=== PATIENT | female | born 1940 | race Caucasian/White ===

== ENCOUNTER 2016-07-01 08:37 | Inpatient (IN) | payer OTHER ==
[~2016-07-01] VITALS: Ht 167.6 cm; Wt 76.9 kg
[~2016-07-01 08:37] MED LIST: ALENDRONATE SOD70 MG PO; ASPIRIN81 M2 PO; CENTRAVITES 501 EACH PO; COPAXONE20 MG/KIT; COPAXONE20 MG/KIT SC; COPAXONE40 MG/1 ML SC; COUMADIN5 MG PO; COUMADIN7.5 MG PO; Coumadin Protocol PO; DELZICOL400 M1 PO; DUONEB 2.5-0.5 M3 ML IH; Dextrose 10% in Wate IV; Dextrose 50% in Wate IV; DuoNeb IH; ENABLEX7.5 MG PO; ENSURE LIQUID237 M1 PO; FORTEO20 MICROGR SC; FUROSEMIDE40 MG PO; GENERLAC10 GM/15 M PO; GLUCAGEN1 MG IM/SC; LEVAQUIN500 MG PO; Lovenox SC; METHENAMINE HIPP1 G1 PO; METHENAMINE HIPP1 GM PO; MITRAZOL POWDER30 GM TP; MULTIVITAMIN1 EAC2 PO; Maalox, Mylanta PO; Milk Of Magnesia,MOM PO; OCUVITE TABLET1 EACH PO; OMEPRAZOLE20 MG PO; PREVACID SOLUTA30 MG GT; PROVENTIL,2.5 MG/0.5 IH; Protonix PO; Reglan IV; SALINE FLUSH 5 M5 ML IV; Senokot S,Pericolace PO; TAMIFLU75 MG PO; TRAMADOL HCL50 MG GT; TRAMADOL HCL50 MG PO; TYLENOL650 MG/20. PO; TYLOX1 CAPSULE PO; Theragran PO; VENTOLIN HFA18 GM IH; VITAMIN C1000 MG PO; WARFARIN; WARFARIN SODIUM4 MG PO; ZANAFLEX2 M1 PO; [UNRECOGNIZED DRUG - OTHER] PO; fentaNYL Citrate IV
[2016-07-01 09:47] VITALS: BP 131/61
[2016-07-01 12:23] VITALS: BP 137/63
[2016-07-01 15:22] VITALS: BP 126/61
[2016-07-01 19:58] VITALS: BP 131/74
[2016-07-01 23:28] VITALS: BP 145/75
[2016-07-02 03:18] VITALS: BP 125/67
[2016-07-02 07:00] VITALS: BP 134/56
[2016-07-02 07:20] LABS: BASOPHIL COUNT 0.1 K/uL (0-0.1); EOSINOPHIL (%) 2.4 % (0-5); EOSINOPHIL COUNT 0.4 K/uL (0-0.3); HEMATOCRIT 32.8 % (36.0-46.0); IMMATURE GRANULOCYTE (%) 0.5 % (0.0-0.7); IMMATURE GRANULOCYTE COUNT 0.1 K/uL; MCH 27.5 PG (29.0-34.0); MCHC 32.9 G/DL (30.0-36.0); MCV 83.5 FL (83-99); MEAN PLAT.VOLUME 9.2 uM^3 (9.5-12.4); MONOCYTE (%) 6.3 % (3-12); MONOCYTE COUNT 1.1 K/uL (0-0.8); NEUTROPHIL (%) 73.7 % (45-76); PLATELET COUNT 464 K/uL (156-360); RBC DIS.WIDTH-SD 45.9 % (39-53); RED BLOOD COUNT 3.93 M/uL (3.80-5.20); WHITE BLOOD COUNT 17.7 K/uL (4.1-10.2)
[2016-07-02 11:30] VITALS: BP 129/65
[2016-07-02 16:07] VITALS: BP 133/76
[2016-07-02 23:10] VITALS: BP 100/59
[2016-07-03 07:10] VITALS: BP 116/59
[2016-07-03 08:41] LABS: ANION GAP 8 MEQ/L (2-14); CHLORIDE 104 MEQ/L (99-109); GFR ESTIMATE (CALCULATED) > 59 mL/min/; MAGNESIUM 1.7 mg/dl (1.3-2.7); POTASSIUM 3.6 MEQ/L (3.7-5.4); SAMPLE HEMOLYSIS CHECK 0; SAMPLE ICTERIC CHECK 0; SAMPLE LIPEMIA CHECK 0; SODIUM 135 MEQ/L (136-147); UREA NITROGEN (BUN) 9 mg/dL (9-23)
[2016-07-03 08:42] LABS: GLUCOSE 80 mg/dL (70-99)
[2016-07-03 09:00] LABS: HEMATOCRIT 32.8 % (36.0-46.0); MCH 27.2 PG (29.0-34.0); MCHC 32.6 G/DL (30.0-36.0); MCV 83.2 FL (83-99); PLATELET COUNT 471 K/uL (156-360); RBC DIS.WIDTH-CV 14.8 % (11.8-14.6); RED BLOOD COUNT 3.94 M/uL (3.80-5.20); WHITE BLOOD COUNT 13.5 K/uL (4.1-10.2)
[2016-07-03 09:03] LABS: BASOPHIL COUNT 0.1 K/uL (0-0.1); EOSINOPHIL (%) 6.3 % (0-5); EOSINOPHIL COUNT 0.9 K/uL (0-0.3); IMMATURE GRANULOCYTE (%) 0.7 % (0.0-0.7); LYMPHOCYTE COUNT 2.9 K/uL (1.0-2.8); MONOCYTE (%) 7.6 % (3-12); NEUTROPHIL (%) 63.2 % (45-76); NEUTROPHIL COUNT 8.5 K/uL (1.8-6.4)
[2016-07-03 15:20] VITALS: BP 141/79
[2016-07-03 19:48] VITALS: BP 120/67
[2016-07-04] VITALS (8 sets, daily range): BP systolic 80–152; BP diastolic 40–67
[2016-07-04 07:33] LABS: ANION GAP 7 MEQ/L (2-14); CHLORIDE 104 MEQ/L (99-109); GFR ESTIMATE (CALCULATED) > 59 mL/min/; GLUCOSE 90 mg/dL (70-99); MAGNESIUM 1.8 mg/dl (1.3-2.7); POTASSIUM 3.9 MEQ/L (3.7-5.4); SAMPLE HEMOLYSIS CHECK 0; SAMPLE ICTERIC CHECK 0; SAMPLE LIPEMIA CHECK 0; SODIUM 138 MEQ/L (136-147); UREA NITROGEN (BUN) 7 mg/dL (9-23)
[2016-07-04 07:37] LABS: BASOPHIL COUNT 0.1 K/uL (0-0.1); EOSINOPHIL (%) 5.3 % (0-5); EOSINOPHIL COUNT 0.5 K/uL (0-0.3); HEMATOCRIT 36.2 % (36.0-46.0); IMMATURE GRANULOCYTE (%) 0.9 % (0.0-0.7); IMMATURE GRANULOCYTE COUNT 0.1 K/uL; LYMPHOCYTE COUNT 1.6 K/uL (1.0-2.8); MCH 26.2 PG (29.0-34.0); MCHC 31.2 G/DL (30.0-36.0); MCV 83.8 FL (83-99); MEAN PLAT.VOLUME 9.1 uM^3 (9.5-12.4); MONOCYTE COUNT 0.6 K/uL (0-0.8); NEUTROPHIL (%) 69.7 % (45-76); NEUTROPHIL COUNT 6.4 K/uL (1.8-6.4); PLATELET COUNT 473 K/uL (156-360); RBC DIS.WIDTH-CV 14.9 % (11.8-14.6); RBC DIS.WIDTH-SD 45.6 % (39-53); RED BLOOD COUNT 4.32 M/uL (3.80-5.20)
[2016-07-04 07:40] LABS: WHITE BLOOD COUNT 9.1 K/uL (4.1-10.2)
[2016-07-05 07:36] LABS: EOSINOPHIL (%) 8.7 % (0-5); EOSINOPHIL COUNT 0.6 K/uL (0-0.3); HEMATOCRIT 34.5 % (36.0-46.0); IMMATURE GRANULOCYTE (%) 0.8 % (0.0-0.7); IMMATURE GRANULOCYTE COUNT 0.1 K/uL; LYMPHOCYTE COUNT 1.9 K/uL (1.0-2.8); MCH 26.2 PG (29.0-34.0); MCHC 31.3 G/DL (30.0-36.0); MCV 83.5 FL (83-99); MEAN PLAT.VOLUME 8.8 uM^3 (9.5-12.4); MONOCYTE (%) 8.6 % (3-12); MONOCYTE COUNT 0.6 K/uL (0-0.8); NEUTROPHIL (%) 52.7 % (45-76); NEUTROPHIL COUNT 3.5 K/uL (1.8-6.4); PLATELET COUNT 450 K/uL (156-360); RBC DIS.WIDTH-CV 14.9 % (11.8-14.6); RBC DIS.WIDTH-SD 45.1 % (39-53); RED BLOOD COUNT 4.13 M/uL (3.80-5.20); WHITE BLOOD COUNT 6.7 K/uL (4.1-10.2)
[2016-07-05 08:03] LABS: ANION GAP 7 MEQ/L (2-14); CHLORIDE 106 MEQ/L (99-109); GFR ESTIMATE (CALCULATED) > 59 mL/min/; GLUCOSE 100 mg/dL (70-99); MAGNESIUM 1.8 mg/dl (1.3-2.7); POTASSIUM 3.3 MEQ/L (3.7-5.4); SAMPLE HEMOLYSIS CHECK 0; SAMPLE ICTERIC CHECK 0; SAMPLE LIPEMIA CHECK 0; SODIUM 140 MEQ/L (136-147); UREA NITROGEN (BUN) 3 mg/dL (9-23)
[2016-07-05 11:36] VITALS: BP 124/74
[2016-07-05 11:38] VITALS: BP 130/70
[2016-07-05 16:18] VITALS: BP 140/64
[2016-07-05 23:34] VITALS: BP 141/66
[2016-07-06 07:12] VITALS: BP 131/63
[2016-07-06] MEDS ORDERED: ZYVOX600 MG PO (11:10)
[2016-07-06] MEDS ORDERED: POTASSIUM CHLO10 MEQ PO (11:18)
== END 2016-07-06 16:37 | disposition home health service (06) | DRG 872 ==
LOC: 3EAST 08:37 → 2EAST 09:17
PROVIDERS: Hospitalist; Internal Medicine
PROC: 0HD8XZZ Extraction of Buttock Skin, External Approach (ICD-10-PCS; 2016-07-01)
PROC: 0JB93ZZ Excision of Buttock Subcutaneous Tissue and Fascia, Percutaneous Approach (ICD-10-PCS; principal; 2016-07-03)
DX: A41.9 Sepsis, unspecified organism (principal); L02.31 Cutaneous abscess of buttock; L89.150 Pressure ulcer of sacral region, unstageable; G35 Multiple sclerosis; N31.9 Neuromuscular dysfunction of bladder, unspecified; Z74.01 Bed confinement status; Z93.3 Colostomy status; E66.9 Obesity, unspecified; L89.310 Pressure ulcer of right buttock, unstageable; L89.320 Pressure ulcer of left buttock, unstageable; E87.6 Hypokalemia; B95.62 Methicillin resistant Staphylococcus aureus infection as the cause of diseases classified elsewhere; J44.9 Chronic obstructive pulmonary disease, unspecified
CPT/HCPCS: 80048; 80202; 83605; 83735; 85025; 87040; 87070; 87075; 87205; 88304; J0131; J1650; J2405; J2543; J2765; J3010; J3370; J7050; J7120

== ENCOUNTER 2017-01-11 19:38 | Inpatient (IN) | payer OTHER ==
[~2017-01-11] VITALS: Ht 167.6 cm; Wt 75.0 kg
[~2017-01-11 19:38] MED LIST changes: +POTASSIUM CHLO10 MEQ PO; +ZYVOX600 MG PO
[2017-01-11 20:40] LABS: BASOPHIL COUNT 0.1 K/uL (0-0.1); EOSINOPHIL (%) 0.4 % (0-5); EOSINOPHIL COUNT 0.1 K/uL (0-0.3); HEMATOCRIT 36.1 % (36.0-46.0); IMMATURE GRANULOCYTE (%) 0.9 % (0.0-0.7); IMMATURE GRANULOCYTE COUNT 0.2 K/uL; INSTRUMENT ABS NEUTROPHIL CT 16.4 K/uL; LYMPHOCYTE COUNT 1.8 K/uL (1.0-2.8); MCV 77.5 FL (83-99); MEAN PLAT.VOLUME 8.8 uM^3 (9.5-12.4); MONOCYTE (%) 4.9 % (3-12); NEUTROPHIL (%) 84.3 % (45-76); NEUTROPHIL COUNT 16.4 K/uL (1.8-6.4); PLATELET COUNT 450 K/uL (156-360); RBC DIS.WIDTH-CV 16.4 % (11.8-14.6); RBC DIS.WIDTH-SD 45.1 % (39-53); RED BLOOD COUNT 4.66 M/uL (3.80-5.20); WHITE BLOOD COUNT 19.5 K/uL (4.1-10.2)
[2017-01-11 20:54] LABS: ADD MIUA? YES; BILIRUBIN NEGATIVE; BLOOD SMALL; COLOR AMBER ((YELLOW)); GLUCOSE (STRIP) NEGATIVE; KETONES NEGATIVE; LEUKOCYTES SMALL; NITRITE NEGATIVE; PROTEIN (STRIP) >=500; SPECIFIC GRAVITY 1.017 (1.000-1.030); UROBILINOGEN 0.2 MG/DL (0.2-1.0)
[2017-01-11 20:55] LABS: CHLORIDE 101 mEq/L (99-109); POTASSIUM 4.7 mEq/L (3.7-5.4); SODIUM 132 mEq/L (136-147)
[2017-01-11 20:56] LABS: GLUCOSE 119 mg/dL (70-99)
[2017-01-11 20:58] LABS: ANION GAP 9 MEQ/L (2-14)
[2017-01-11 21:00] LABS: GFR ESTIMATE (CALCULATED) > 59 mL/min/
[2017-01-11 21:01] LABS: UREA NITROGEN (BUN) 17 mg/dL (9-23)
[2017-01-11 21:15] LABS: CASTS NONE SEEN /LPF; EPITHELIAL CELLS 2+ /HPF; MUCUS 4+ /LPF
[2017-01-11 21:16] LABS: BACTERIA 4+ /HPF; UCUL ADDED? YES; WHITE BLOOD CELLS 40-50 /HPF (0-5)
[2017-01-12 01:45] VITALS: BP 129/55
[2017-01-12 05:31] VITALS: BP 120/64
[2017-01-12 07:23] LABS: METH RESISTANT S AUREUS PCR NEGATIVE (NEGATIVE)
[2017-01-12 07:29] LABS: PROBE CHECK PASS; SPECIMEN PROCESSING CONTROL PASS
[2017-01-12 07:40] VITALS: BP 123/59
[2017-01-12 11:34] LABS: BASE EXCESS -2.7 mEq/L (-3 to +3); BICARBONATE 21.7 mEq/L (22-26); CARBOXY HGB 2.1 % (0-5); COMMENTS - BLOOD GASES A+C+; DEVICE HHFNC; METHEMOGLOBIN 1.9 % (0-1.5); O2 FLOW 11 L/MIN; PCO2 35 mm Hg (35-45); PO2 63 mm Hg (80-100); SITE RR
[2017-01-12 13:08] VITALS: BP 144/93
[2017-01-12 17:17] VITALS: BP 134/69
[2017-01-12 19:05] VITALS: BP 123/70
[2017-01-13] VITALS (7 sets, daily range): BP systolic 106–144; BP diastolic 49–82
[2017-01-13 06:11] LABS: HEMATOCRIT 23.4 % (36.0-46.0); MCH 25.1 PG (29.0-34.0); MCHC 30.8 G/DL (30.0-36.0); MEAN PLAT.VOLUME 9.4 uM^3 (9.5-12.4); PLATELET COUNT 339 K/uL (156-360); RBC DIS.WIDTH-CV 16.6 % (11.8-14.6); RBC DIS.WIDTH-SD 48.6 % (39-53); WHITE BLOOD COUNT 13.2 K/uL (4.1-10.2)
[2017-01-13 06:12] LABS: MCV 81.5 FL (83-99); RED BLOOD COUNT 2.87 M/uL (3.80-5.20)
[2017-01-13 06:23] LABS: ANION GAP 5 MEQ/L (2-14); GFR ESTIMATE (CALCULATED) > 59 mL/min/; GLUCOSE 118 mg/dL (70-99); MAGNESIUM 1.9 mg/dl (1.3-2.7); POTASSIUM 4.1 MEQ/L (3.7-5.4); SAMPLE HEMOLYSIS CHECK 0; SAMPLE ICTERIC CHECK 0; SAMPLE LIPEMIA CHECK 0; UREA NITROGEN (BUN) 10 mg/dL (9-23)
[2017-01-13 06:27] LABS: CHLORIDE 112 MEQ/L (99-109); SODIUM 141 MEQ/L (136-147)
[2017-01-14 04:47] VITALS: BP 140/80
[2017-01-14 07:18] LABS: MCH 24.5 PG (29.0-34.0); MCHC 29.7 G/DL (30.0-36.0); MCV 82.6 FL (83-99); MEAN PLAT.VOLUME 9.2 uM^3 (9.5-12.4); NRBC (%) 0.3 /100 WBC (0-0); PLATELET COUNT 357 K/uL (156-360); RBC DIS.WIDTH-CV 17.1 % (11.8-14.6); RBC DIS.WIDTH-SD 49.4 % (39-53); WHITE BLOOD COUNT 15.5 K/uL (4.1-10.2)
[2017-01-14 07:19] LABS: RED BLOOD COUNT 3.51 M/uL (3.80-5.20)
[2017-01-14 07:38] LABS: ANION GAP 6 MEQ/L (2-14); CHLORIDE 112 MEQ/L (99-109); GFR ESTIMATE (CALCULATED) > 59 mL/min/; GLUCOSE 103 mg/dL (70-99); SAMPLE HEMOLYSIS CHECK 0; SAMPLE ICTERIC CHECK 0; SAMPLE LIPEMIA CHECK 0; SODIUM 146 MEQ/L (136-147); UREA NITROGEN (BUN) 13 mg/dL (9-23)
[2017-01-14 08:00] VITALS: BP 143/66
[2017-01-14 08:50] LABS: BASE EXCESS 2.7 mEq/L (-3 to +3); BICARBONATE 28.4 mEq/L (22-26); COMMENTS - BLOOD GASES A+C+; METHEMOGLOBIN 1.3 % (0-1.5); O2 FLOW 50 L/MIN; PCO2 48 mm Hg (35-45); PO2 149 mm Hg (80-100); SITE LR; pH 7.38 (7.35-7.45)
[2017-01-14 08:51] LABS: DEVICE HHFNC; FI02 85 %; TOTAL RESP RATE 25 resp/min
[2017-01-14 11:31] VITALS: BP 130/60
[2017-01-14 15:41] VITALS: BP 128/63
[2017-01-14 20:45] VITALS: BP 129/68
[2017-01-15 00:45] VITALS: BP 109/55
[2017-01-15 05:22] VITALS: BP 117/56
[2017-01-15 07:45] VITALS: BP 136/65
[2017-01-15 12:08] VITALS: BP 129/62
[2017-01-15 16:30] VITALS: BP 152/70
[2017-01-15 19:47] VITALS: BP 138/64
[2017-01-16 00:40] VITALS: BP 173/77
[2017-01-16 03:45] VITALS: BP 140/67
[2017-01-16 06:35] LABS: ANION GAP 9 MEQ/L (2-14); CHLORIDE 104 MEQ/L (99-109); GFR ESTIMATE (CALCULATED) > 59 mL/min/; GLUCOSE 118 mg/dL (70-99); MAGNESIUM 1.8 mg/dl (1.3-2.7); POTASSIUM 3.9 MEQ/L (3.7-5.4); SAMPLE HEMOLYSIS CHECK 0; SAMPLE ICTERIC CHECK 0; SAMPLE LIPEMIA CHECK 0; SODIUM 143 MEQ/L (136-147)
[2017-01-16 06:36] LABS: UREA NITROGEN (BUN) 24 mg/dL (9-23)
[2017-01-16 06:54] LABS: HEMATOCRIT 22.6 % (36.0-46.0); MCH 25.4 PG (29.0-34.0); MCHC 30.5 G/DL (30.0-36.0); MCV 83.1 FL (83-99); MEAN PLAT.VOLUME 9.6 uM^3 (9.5-12.4); NRBC (%) 0.8 /100 WBC (0-0); PLATELET COUNT 430 K/uL (156-360); RBC DIS.WIDTH-CV 18.2 % (11.8-14.6); RBC DIS.WIDTH-SD 49.2 % (39-53); WHITE BLOOD COUNT 14.9 K/uL (4.1-10.2)
[2017-01-16 06:55] LABS: RED BLOOD COUNT 2.72 M/uL (3.80-5.20)
[2017-01-16 07:06] LABS: ABS NEUTROPHIL COUNT 13.6; ANISOCYTOSIS 1+; BAND NEUTROPHILS 0.9 % (0-8.0); EOSINOPHIL ABS CT 0; LYMPHOCYTES 5.3 % (15.0-45.0); NUCLEATED RBC'S 0.9; PLAT.SUFFICIENCY INCREASED; POLYCHROMASIA 1+; SEG.NEUTROPHILS 90.3 % (46.0-76.0)
[2017-01-16 08:00] VITALS: BP 166/74
[2017-01-16 08:54] LABS: HEMATOCRIT 24.8 % (36.0-46.0); MCH 26.2 PG (29.0-34.0); MCHC 31.5 G/DL (30.0-36.0); MCV 83.2 FL (83-99); MEAN PLAT.VOLUME 9.3 uM^3 (9.5-12.4); NRBC (%) 0.9 /100 WBC (0-0); PLATELET COUNT 453 K/uL (156-360); RBC DIS.WIDTH-CV 19.5 % (11.8-14.6); RED BLOOD COUNT 2.98 M/uL (3.80-5.20); WHITE BLOOD COUNT 16.4 K/uL (4.1-10.2)
[2017-01-16 10:20] LABS: IRON 58 MCG/DL (35-150)
[2017-01-16 10:28] LABS: FERRITIN 115 NG/ML (10-291); LACTATE DEHYDROGENASE 352 IU/L (20-246)
[2017-01-16 10:48] LABS: IMM.RETIC FRACTION 44.9 % (3-19); RETIC HGB EQUIVALENT 29.5 (28-36); RETICULOCYTE COUNT 6.4 % (0.5-1.8)
[2017-01-16 12:00] VITALS: BP 138/63
[2017-01-16 16:30] VITALS: BP 141/63
[2017-01-16 17:16] LABS: POINT-OF-CARE METER ID UU13113698
[2017-01-16 20:00] VITALS: BP 139/65
[2017-01-17] VITALS (7 sets, daily range): BP systolic 129–169; BP diastolic 58–72
[2017-01-17 04:59] LABS: HEMATOCRIT 24.1 % (36.0-46.0); MCH 25.9 PG (29.0-34.0); MCHC 30.7 G/DL (30.0-36.0); MCV 84.3 FL (83-99); MEAN PLAT.VOLUME 9.4 uM^3 (9.5-12.4); NRBC (%) 1.1 /100 WBC (0-0); PLATELET COUNT 424 K/uL (156-360); RBC DIS.WIDTH-CV 19.5 % (11.8-14.6); RBC DIS.WIDTH-SD 51.9 % (39-53); RED BLOOD COUNT 2.86 M/uL (3.80-5.20); WHITE BLOOD COUNT 14.1 K/uL (4.1-10.2)
[2017-01-17 05:29] LABS: ANION GAP 8 MEQ/L (2-14); CHLORIDE 107 MEQ/L (99-109); GFR ESTIMATE (CALCULATED) > 59 mL/min/; GLUCOSE 141 mg/dL (70-99); POTASSIUM 4.2 MEQ/L (3.7-5.4); SAMPLE HEMOLYSIS CHECK 0; SAMPLE ICTERIC CHECK 0; SAMPLE LIPEMIA CHECK 0; SODIUM 145 MEQ/L (136-147); UREA NITROGEN (BUN) 26 mg/dL (9-23)
[2017-01-17 06:09] LABS: ABS NEUTROPHIL COUNT 12.4; ANISOCYTOSIS 1+; ATYPICAL LYMPHOCYTE 1.7 %; EOSINOPHIL ABS CT 0; HYPOCHROMASIA 1+; INSTRUMENT ABS NEUTROPHIL CT 11.7 K/uL; LYMPHOCYTES 7.8 % (15.0-45.0); MACROCYTES 1+; MYELOCYTES 1.7 %; NUCLEATED RBC'S 0.9; PLAT.SUFFICIENCY INCREASED; POLYCHROMASIA 2+; SEG.NEUTROPHILS 87.9 % (46.0-76.0)
[2017-01-17 12:32] LABS: DIRECT BILIRUBIN 0.4 mg/dL (0.0-0.3)
[2017-01-17 12:41] LABS: ALKALINE PHOSPHATASE 71 IU/L (3-129); TOTAL BILIRUBIN 1.2 MG/DL (0.0-1.0)
[2017-01-17 14:19] LABS: HEMATOCRIT 27.5 % (36.0-46.0); MCH 26.1 PG (29.0-34.0); MCHC 30.5 G/DL (30.0-36.0); MCV 85.4 FL (83-99); MEAN PLAT.VOLUME 9.6 uM^3 (9.5-12.4); NRBC (%) 1.1 /100 WBC (0-0); PLATELET COUNT 520 K/uL (156-360); RBC DIS.WIDTH-CV 20.2 % (11.8-14.6); RBC DIS.WIDTH-SD 54.2 % (39-53); RED BLOOD COUNT 3.22 M/uL (3.80-5.20); WHITE BLOOD COUNT 18.4 K/uL (4.1-10.2)
[2017-01-18 04:00] VITALS: BP 133/61
[2017-01-18 05:53] LABS: HEMATOCRIT 26.2 % (36.0-46.0); MCH 26.4 PG (29.0-34.0); MCHC 30.5 G/DL (30.0-36.0); MCV 86.5 FL (83-99); MEAN PLAT.VOLUME 9.4 uM^3 (9.5-12.4); PLATELET COUNT 438 K/uL (156-360); RBC DIS.WIDTH-CV 21.1 % (11.8-14.6); RBC DIS.WIDTH-SD 54.1 % (39-53); RED BLOOD COUNT 3.03 M/uL (3.80-5.20); WHITE BLOOD COUNT 16.2 K/uL (4.1-10.2)
[2017-01-18 05:59] LABS: EOSINOPHIL (%) 0 % (0-5); IMMATURE GRANULOCYTE (%) 4.5 % (0.0-0.7); IMMATURE GRANULOCYTE COUNT 0.7 K/uL; INSTRUMENT ABS NEUTROPHIL CT 13.9 K/uL; LYMPHOCYTE COUNT 0.9 K/uL (1.0-2.8); MONOCYTE (%) 4.3 % (3-12); MONOCYTE COUNT 0.7 K/uL (0-0.8); NEUTROPHIL (%) 85.6 % (45-76); NEUTROPHIL COUNT 13.9 K/uL (1.8-6.4)
[2017-01-18 06:19] LABS: ANION GAP 9 MEQ/L (2-14); CHLORIDE 107 MEQ/L (99-109); GFR ESTIMATE (CALCULATED) > 59 mL/min/; GLUCOSE 141 mg/dL (70-99); POTASSIUM 4.1 MEQ/L (3.7-5.4); SAMPLE HEMOLYSIS CHECK 0; SAMPLE ICTERIC CHECK 0; SAMPLE LIPEMIA CHECK 0; SODIUM 142 MEQ/L (136-147); UREA NITROGEN (BUN) 30 mg/dL (9-23)
[2017-01-18 09:01] VITALS: BP 150/66
[2017-01-18 11:37] VITALS: BP 134/62
[2017-01-18 15:13] VITALS: BP 153/68
[2017-01-18 19:40] VITALS: BP 167/74
[2017-01-18 23:20] VITALS: BP 118/62
[2017-01-19] VITALS (7 sets, daily range): BP systolic 114–155; BP diastolic 55–72
[2017-01-19 05:56] LABS: EOSINOPHIL (%) 0.1 % (0-5); IMMATURE GRANULOCYTE (%) 2.2 % (0.0-0.7); IMMATURE GRANULOCYTE COUNT 0.3 K/uL; INSTRUMENT ABS NEUTROPHIL CT 10.8 K/uL; LYMPHOCYTE COUNT 1.2 K/uL (1.0-2.8); MCH 26.2 PG (29.0-34.0); MCV 87.2 FL (83-99); MEAN PLAT.VOLUME 9.6 uM^3 (9.5-12.4); MONOCYTE (%) 7.7 % (3-12); NEUTROPHIL COUNT 10.8 K/uL (1.8-6.4); NRBC (%) 0.4 /100 WBC (0-0); PLATELET COUNT 419 K/uL (156-360); RBC DIS.WIDTH-CV 22.2 % (11.8-14.6); RBC DIS.WIDTH-SD 57.6 % (39-53); RED BLOOD COUNT 2.98 M/uL (3.80-5.20); WHITE BLOOD COUNT 13.4 K/uL (4.1-10.2)
[2017-01-19 06:16] LABS: ALKALINE PHOSPHATASE 82 IU/L (3-129); ANION GAP 6 MEQ/L (2-14); CHLORIDE 109 MEQ/L (99-109); GFR ESTIMATE (CALCULATED) > 59 mL/min/; GLUCOSE 109 mg/dL (70-99); SAMPLE HEMOLYSIS CHECK 0; SAMPLE ICTERIC CHECK 0; SAMPLE LIPEMIA CHECK 0; SODIUM 143 MEQ/L (136-147); UREA NITROGEN (BUN) 25 mg/dL (9-23)
[2017-01-20 04:28] VITALS: BP 154/62
[2017-01-20] MEDS ORDERED: APRESOLINE25 MG PO (08:34)
[2017-01-20] MEDS ORDERED: HIPREX1 GM PO (08:34)
[2017-01-20] MEDS ORDERED: ZINC OXIDE56.7 GM TP (08:35)
[2017-01-20 08:37] VITALS: BP 144/63
[2017-01-20] MEDS ORDERED: SANTYL30 GM TP (08:41)
[2017-01-20] MEDS ORDERED: PREDNISONE10 MG PO (08:41)
[2017-01-20] MEDS ORDERED: LEVOFLOXACIN750 MG PO (08:41)
[2017-01-20 08:47] LABS: HEMATOCRIT 29.9 % (36.0-46.0); MCH 26.1 PG (29.0-34.0); MCHC 30.1 G/DL (30.0-36.0); MCV 86.7 FL (83-99); MEAN PLAT.VOLUME 9.6 uM^3 (9.5-12.4); NRBC (%) 0.2 /100 WBC (0-0); PLATELET COUNT 428 K/uL (156-360); RBC DIS.WIDTH-CV 23.3 % (11.8-14.6); RBC DIS.WIDTH-SD 67.6 % (39-53); RED BLOOD COUNT 3.45 M/uL (3.80-5.20); WHITE BLOOD COUNT 15.3 K/uL (4.1-10.2)
[2017-01-20 09:17] LABS: ANION GAP 5 MEQ/L (2-14); CHLORIDE 110 MEQ/L (99-109); GFR ESTIMATE (CALCULATED) > 59 mL/min/; GLUCOSE 97 mg/dL (70-99); POTASSIUM 4.2 MEQ/L (3.7-5.4); SAMPLE HEMOLYSIS CHECK 0; SAMPLE ICTERIC CHECK 0; SAMPLE LIPEMIA CHECK 0; SODIUM 141 MEQ/L (136-147); UREA NITROGEN (BUN) 25 mg/dL (9-23)
== END 2017-01-20 13:33 | disposition home health service (06) | DRG 871 ==
LOC: EME → EDBD 19:38 → EDOF 23:19 → 4EAST 23:19 → ENRESERV 23:20 → 4EAST 01-12 01:42
PROVIDERS: Hospitalist; Internal Medicine; Physician Assistant
DX: A41.9 Sepsis, unspecified organism (principal); R65.20 Severe sepsis without septic shock; J96.01 Acute respiratory failure with hypoxia; J69.0 Pneumonitis due to inhalation of food and vomit; T83.511A Infection and inflammatory reaction due to indwelling urethral catheter, initial encounter; N39.0 Urinary tract infection, site not specified; J93.9 Pneumothorax, unspecified; G35 Multiple sclerosis; D59.0 Drug-induced autoimmune hemolytic anemia; T36.0X5A Adverse effect of penicillins, initial encounter; L89.154 Pressure ulcer of sacral region, stage 4; L89.322 Pressure ulcer of left buttock, stage 2; L89.113 Pressure ulcer of right upper back, stage 3; E87.70 Fluid overload, unspecified; R41.0 Disorientation, unspecified; T38.0X5A Adverse effect of glucocorticoids and synthetic analogues, initial encounter; I27.2 Other secondary pulmonary hypertension; I35.0 Nonrheumatic aortic (valve) stenosis; J84.10 Pulmonary fibrosis, unspecified; N93.9 Abnormal uterine and vaginal bleeding, unspecified; J44.9 Chronic obstructive pulmonary disease, unspecified; N31.9 Neuromuscular dysfunction of bladder, unspecified; I10 Essential (primary) hypertension; M41.9 Scoliosis, unspecified; K21.9 Gastro-esophageal reflux disease without esophagitis; Z87.442 Personal history of urinary calculi; Z74.01 Bed confinement status; Z79.82 Long term (current) use of aspirin; Z82.49 Family history of ischemic heart disease and other diseases of the circulatory system; Z86.14 Personal history of Methicillin resistant Staphylococcus aureus infection; Z86.711 Personal history of pulmonary embolism; Z86.718 Personal history of other venous thrombosis and embolism; Z90.710 Acquired absence of both cervix and uterus; Z93.3 Colostomy status; Z96.642 Presence of left artificial hip joint; Z96.652 Presence of left artificial knee joint
CPT/HCPCS: 36600; 71010; 71275; 74230; 80048; 80053; 80076; 81003; 82272; 82607; 82728; 82746; 82803; 82948; 83540; 83605; 83615; 83735; 84466; 85025; 85027; 85045; 85379; 86850; 86860; 86870; 86880; 86900; 86901; 86920; 87040; 87086; 87449; 87641; 87801; 92526 GN; 92610 GN; 92611 GN; 93005; 93306; 94640; 94640 76; 94667; 94668; 94760; 94799; 99202; 99281; 99285; J1940; J2543; J2920; J2930; J3370; J7030; J7050; J7512; S0028